=== PATIENT | female | born 1945 | race Caucasian/White ===

== ENCOUNTER → 2017-03-05 | Day surgery (SDC) | payer MEDICARE, BC ==
[~2017-03-05] MED LIST: CARBIDOPA LE S PO; CARBIDOPA-LEVO1 EAC3 PO; NEUPRO1 EAC1 TD; PROTONIX PO; REQUIP2 MG PO
--- NOTE | ~2017-03-05 | OR ---
Unit #: [id number] #: [id number] Patient: TEENA NICOLE [id number] [address] [address] [id number] O MR#: [id number] NAME: TEENA NICOLE. ROOM: Date of Procedure: 03/05/2017 Admission Date: 03/05/2017 Surgeon: Sajan Brown M.D. : 1945 Attending Physician: Sajan Brown M.D. Primary Care Physician: Kirsten Carney M.D. OPERATIVE REPORT PREOPERATIVE DIAGNOSES The patient presented with history of dysphagia to solids. In addition, she needs a colorectal cancer screening. PROCEDURES PERFORMED 1. Upper gastrointestinal endoscopy and biopsy. 2. Upper gastrointestinal endoscopy and dilation. 3. Upper gastrointestinal endoscopy and removal of foreign body as well as colonoscopy up to cecum. POSTOPERATIVE DIAGNOSES For upper endoscopy: 1. The patient had tight distal esophageal stricture with a food bolus stuck above the stricture. The stricture was too tight to navigate with the scope and after removing the foreign body which was a piece of solid food, the stricture was dilated using a 12 to 15 mm TTS balloon up to 14 mm. 2. Hiatus hernia. 3. Multiple gastric polyps in the fundus. These are certainly hyperplastic polyps. 4. Rest of the examination up to third part of duodenum was normal. Biopsies obtained from the antrum for CLOtest. For colonoscopy: 1. The patient had moderate sigmoid and descending colon diverticulosis. Otherwise, normal examination up to cecum and terminal ileum. The quality of the prep was good. RECOMMENDATIONS The patient will be on b.i.d. PPI therapy and a repeat endoscopy and dilation will be scheduled in the next 6 to 8 weeks' time. She will also require a repeat surveillance colonoscopy in the future. SEDATION USED MAC. DESCRIPTION OF PROCEDURE Following detailed explanation of the potential risks and complications of an upper endoscopy and a colonoscopy, namely perforation, bleeding, and complications related to sedation, the patient was brought to GI lab and laid in the left lateral decubitus position. Lubricated tip of the Olympus video upper endoscope was passed through bite block into the Unit #: [id number] #: [id number] Patient: TEENA NICOLE proximal esophagus under direct vision. The entire esophageal mucosa was examined. The patient was noted to have a tight stricture in the distal esophagus. The food bolus stuck above it. This was impossible to navigate with the scope. The food bolus was initially removed and the stricture was passed with the scope with a gentle nudge dilating in the process. The scope was then advanced into the gastric cavity and a medium-sized hiatus hernia was noted. Mucosa of the fundus, body, and antrum examined. The patient was noted to have multiple polyps in the fundus. These were hyperplastic polyps. Prepyloric antral area appeared normal. Pylorus was intubated with visualization of the normal duodenal bulb and second and third part of the duodenum. Upon withdrawal and retroflexion, incisura, cardia, and greater curve examined and biopsy obtained from the antrum for CLOtest. The scope was then withdrawn in the distal esophagus. The entire esophageal mucosa was examined all the way up to pharynx. No additional findings noted. The examination table was then turned by 180 degrees and the patient positioned for a colonoscopy. A digital rectal examination was performed, which was normal. Lubricated tip of the Olympus video colonoscope was inserted through the anus and advanced under direct vision. The scope was advanced and passed up to sigmoid into descending colon. Multiple medium-sized diverticula were noted in this area. The scope tip was then navigated all the way up to cecum with visualization of the ileocecal valve and the appendiceal orifice. Preparation was good with good visualization and photodocumentation was obtained. Successive segments of the colonic mucosa were examined upon withdrawal and appeared unremarkable. There being no polyps, mass lesions, or AVMs. Other than the moderate pandiverticulosis, no other abnormalities noted. The patient did not have any hemorrhoids at anal verge. The scope was then withdrawn. The patient returned to recovery area. She tolerated the procedure without any postprocedure complications. Dictated by... Donta Batres TD: 03/05/2017 11:29 JOB #: [id number] OPERATIVE REPORT Page 1 of 1 X Sajan Brown MD PROCEDURE OPERATIVE NOTE
== END | disposition home or self-care (01) ==
LOC: COPS 05:58
DX: Z12.11 Encounter for screening for malignant neoplasm of colon (principal); K22.2 Esophageal obstruction; K44.9 Diaphragmatic hernia without obstruction or gangrene; K57.30 Diverticulosis of large intestine without perforation or abscess without bleeding; G20 Parkinson's disease; Z79.899 Other long term (current) drug therapy; Z98.890 Other specified postprocedural states
CPT/HCPCS: 43239; 43247; 43249; G0121; 87077; J0171